=== PATIENT | female | born 1995 | race African-American/Black ===

== ENCOUNTER 2024-09-10 08:36 | Emergency (ER) | payer MEDICAID ==
[~2024-09-10] VITALS: Ht 175.3 cm; Wt 75.0 kg
[2024-09-10 08:38] VITALS: BP 126/78; PULSE 100; RESP 16; TEMP 97.8; O2SAT 98
[2024-09-10] MEDS: ACETAMINOPHEN 325MG TABLET PO ONE (09:22)
== END 2024-09-10 10:06 | disposition home or self-care (01) ==
LOC: ER 08:36
DX: M25.511 Pain in right shoulder (principal); M25.512 Pain in left shoulder
CPT/HCPCS: 71045; 73030; 99284